=== PATIENT | male | born 1985 | race Caucasian/White ===

== ENCOUNTER 2016-11-20 15:06 | Inpatient (IN) | payer OTHER ==
[~2016-11-20] VITALS: Ht 190.5 cm; Wt 130.0 kg
[2016-11-20] MEDS ORDERED: SM A PO (15:17)
[2016-11-20] MEDS ORDERED: CHLO125TA (15:17)
[2016-11-20] MEDS ORDERED: DILT120T PO (15:17)
[2016-11-20] MEDS ORDERED: BUPR150T3 PO (15:17)
[2016-11-20] MEDS ORDERED: LIPI80TA PO (15:17)
[2016-11-20] MEDS ORDERED: CVS (15:17)
[2016-11-20] MEDS ORDERED: PROT1TAB2 PO (15:17)
[2016-11-20 16:10] LABS: MEAN CORPUSCULAR HEMOGLOBIN 30.6 pg (27.0-33.0); MEAN CORPUSCULAR HGB CONC 35.6 g/dl (32.0-36.5); RED CELL DISTRIBUTION WIDTH 12.4 % (11.5-14.5); WHITE BLOOD COUNT 7.1 10^3/uL (4.0-10.0)
[2016-11-20 16:38] LABS: METHADONE URINE NEGATIVE (NEGATIVE)
[2016-11-20 16:49] LABS: ALBUMIN 4.3 GM/DL (3.2-5.2); ALBUMIN/GLOBULIN RATIO 1.19 (1.00-1.93); ALKALINE PHOSPHATASE 93 U/L (45-117); ALT/SGPT 141 U/L (12-78); ANION GAP 6 MEQ/L (8-16); AST/SGOT 50 U/L (15-37); BILIRUBIN,DIRECT 0.2 MG/DL (0.0-0.2); BILIRUBIN,TOTAL 0.9 MG/DL (0.2-1.0); BLOOD UREA NITROGEN 18 MG/DL (7-18); CALCIUM LEVEL 9.3 MG/DL (8.5-10.1); CARBON DIOXIDE LEVEL 27 MEQ/L (21-32); CHLORIDE LEVEL 105 MEQ/L (98-107); CREATININE FOR GFR 0.91 MG/DL (0.70-1.30); GLOMERULAR FILTRATION RATE > 60.0 (>60); GLUCOSE, FASTING 86 MG/DL (70-105); SODIUM LEVEL 138 MEQ/L (136-145); TOTAL PROTEIN 7.9 GM/DL (6.4-8.2)
[2016-11-20] MEDS ORDERED: CHLO25TA PO (17:59)
[2016-11-20] MEDS ORDERED: VITA100066 PO (17:59)
[2016-11-20 21:56] VITALS: BP 140/92
[2016-11-20] MEDS ORDERED: MAALOX 30 ML SUSP *UDC PO PRN (23:00)
[2016-11-20] MEDS ORDERED: MOM 30ML SUSPENSION UDC PO PRN (23:00)
[2016-11-20] MEDS ORDERED: ACETAMINOPHEN TAB 650MG DOSE (2X325MG) PO PRN (23:00)
[2016-11-20] MEDS ORDERED: traZODone 50 MG TAB PO PRN (23:00)
[2016-11-21 06:19] VITALS: BP 136/78
[2016-11-21] MEDS: CHLORTHALIDONE 25 MG TAB PO SCH (08:29)
[2016-11-21] MEDS: LORATADINE 10 MG TAB PO SCH (08:29)
[2016-11-21] MEDS: ATORVASTATIN 20 MG TAB PO SCH (08:29)
[2016-11-21] MEDS: PANTOPRAZOLE 40MG TAB (PROTONIX) PO SCH (08:29)
[2016-11-21] MEDS ORDERED: buPROPion **XL** TABLET 150MG (WELLBUTRIN XL) PO SCH (09:00)
[2016-11-21] MEDS ORDERED: VITAMIN D 1,000 INTERNATIONAL UNITS TABLET PO SCH (09:00)
--- NOTE | 2016-11-21 09:23 | MHHPEPDOC ---
[facility] History & Physical History and Physical DATE OF ADMISSION: Nov 20, 2016 at 17:45 LEGAL STATUS AT ADMISSION: Voluntary CHIEF COMPLAINT: "depression, anxiety, ADHD, my swears I have PTSD". HISTORY OF THE PRESENT ILLNESS: Patient is a 31-year-old male, who is retired [employer] after 13.5 years. 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 He is frustrated with his lack of employment options since retiring. He is often not given an interview even though qualified and experienced. He lifes with his of 12 years and they have physical custody of 3 children belonging to another family member. Those parents are suspected of physical abuse, alcohol dependence and associating with sexual predators. Unfortunately his is ill with colon cancer and her doctor expects it to spread to the brain and gives her prognosis at 15 months. Pt works PT evenings at [employer]. He is frustrated by his lack of ability to earn a decent income and take care of the family. He is attending college on the [employer]. He reports lots of arguments with his lately over everything. Pt reports that he has had SI for several years but he actually developed a plan a couple weeks ago. When he verbalized this plan to his [facility] doctor he was sent over from that office to our ER and admitted. His plan was to use carbon monoxide poisoning. Pt denies any previous suicide attempts in the past. Pt is 90% service connected for depression and anxiety and will be eligible for benefits in April of 2017. PSYCHIATRIC REVIEW OF SYSTEMS: Affective: friendly Anxiety: mild Trauma: denies Psychosis: none Personally: cooperative PAST PSYCHIATRIC HISTORY: Prior Psychiatric Disorder: in tx previously for depression and anxiety and ADHD Outpatient Treatment: [facility] Suicidal/Self injurious: denies Psychotropic Medication History: Wellbutrin, Adderall, Stratterra (not effective. ALLERGIES: Please see below. FAMILY PSYCHIATRIC HISTORY: he is adopted. no information on bio father. All he knows of bio mom is she had MS. no information on mental illness or suicide. 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 Mom remarried and step-dad had emotional problems of anger and depression and he wasn't in the picture for long. He would yell and punch doors and eventually left. 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 Legal: denies. Martial: , Economic: VA benefits Supports: , outpatient staff Abuse/trauma: denies. 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 He knew many service members who including a female soldier who had just given and was found on with her baby next to her. He also knew an NCO and a pump servicer supervisor who committed suicide while he was deployed. SUBSTANCE ABUSE HISTORY: no drug use, some alcohol like a beer with dinner, no detox rehab or dui. PAST MEDICAL/SURGICAL HISTORY: 1. Migraines 2. h/o palpitations on Adderall PMHx: Hypertension Dyslipidemia Allergic rhinitis GERD Vitamin D deficiency RALPH. CPAP Obesity. BMI 36.9 PSHX: Nasal polypectomy [place] teeth extraction VITAL SIGNS: Temperature 98.7, pulse 68, respiratory rate16, blood pressure 136 /78, pulse [id number] % on room air. MENTAL STATUS EXAMINATION: General appearance: Patient is a 31-year old male, who is tall, fair haired, dressed in hospital scrubs, good eye contact, pleasant and cooperative. Speech: spontaneous Thought processes: goal directed, no delusion, FOI, ADRIANE or IOR. Thought content: appropriate Abstract reasoning and computation: good. Description of associations: good. Description of abnormal or psychotic thoughts: no psychotic symptoms, + suicidal thoughts with plan. Judgment: good Insight: fair. Orientation: well oreinted x 4. Recent and remote memory: intact Attention span and concentration: varies. Fund of knowledge: Full. Mood: "tired and have a migraine" Affect: congruent. DIAGNOSES: 1. MDD, recurrent, severe without psychotic symptoms.. 2. Generalized anxiety disorder 3. ADHD ASSESSMENT: pt reports poor sleep over the last several weeks and months. Has sleep apnea and struggles to sleep with the CPAP. Awakens frequently. Gets about 607 hours. Does not feel rested, low energy levels most days, poor concentration. "I'm all over the place". Struggling with Algebra. Reports increased appetite with some weight gain, psychomotor changes that include feeling "a little on edge" to constant fidgeting. Pt reports a great deal of guilt related to inability to find a good position/job. Feels he wasted his life in the and now cannot find and meaningful work. Pt is preoccupied with suirice which has become more of a plan over the past 2-3 weeks. When pt was 6 or 7 he was evaluated for ADHD and given Adderall. He reports it made him Zombie-like. "I was emotionless as a child". Meds were stopped and he could not pay attention. He asked What all the time so much so they had his hearing tested which was fine. He says Dr. Gerber at [facility] told him he had Type II ADHD. He reports difficulty with starting tasks and then completing them. He went back on Adderall in 2008 to 2013 but he had to stop the medication due to increased blood pressure and heart palpitations. Strattera was tried but was not of benefit to him. Pt was evaluated for PTSD. He denies nightmares. He talks in his sleep and he shoves his out of bed. Pt spent 1 year in [place] but that was like being at the country [place] he says. Pt identifies most difficulty with sounds resembling gun shots. This causes a hyper-startle reaction in him. He has to find the source of the noise before he calms down. Pt reports "scanning a room" when asked about hyper-vigilance but denies checking doors windows, thinking about his safety, or being overly concerned with the environment. He says he will sit in a corner of the room and observe. He denies intrusive thoughts or dissociative episodes. Pt admits to having lots of worry and some episodes of Panic. He states he was admitted here previously for a panic attack. Pt grew up in [place]. he at age 19 after meeting his at a alliance party. After [place] he was stationed at [facility]. PROBLEM LIST: 1. risk for suicide 2. depression 3. ineffective coping INITIAL TREATMENT PLAN: 1. Patient was admitted on a Voluntary status. 2. Complete history was obtained. 3. With patients permission, family will be contacted and database will be expanded. 4. Patients medication regimen will be reviewed and changed accordingly. 5. Patient will be provided with protected environment. 6. Patient will be treated with individual, group, and milieu therapies. 7. Patient will receive supportive psych-education. 8. Discharge planning will commence immediately. 9. Outpatient follow-up treatment will be strongly recommended. 10. The initial treatment plan will focus initially on: * see problem list. * * PLAN: increase Wellbutrin XL to 300 mg, monitor response, use trazodone for sleep and prn Atarax for anxiety. Enc group participation for acquisition of positive coping skills. ESTIMATED LENGTH OF STAY: 5-7 DAYS. TIME SPENT COUNSELING AND COORDINATING INITIAL CARE: 50 minutes. Laboratory Data 24H Labs Laboratory Tests 2 11/20/16 16:02: Anion Gap 6L, Glomerular Filtration Rate > 60.0, Calcium Level 9.3, Aspartate Amino Transf (AST/SGOT) 50H, Alanine Aminotransferase (ALT/SGPT) 141H, Alkaline Phosphatase 93, Total Bilirubin 0.9, Direct Bilirubin 0.2, Total Protein 7.9, Albumin 4.3, Albumin/Globulin Ratio 1.19, Thyroid Stimulating Hormone (TSH) 0.893, Salicylates Level < 1.7L, Urine Amphetamines Screen NEGATIVE, Urine Benzodiazepines Screen NEGATIVE, Urine Opiates Screen NEGATIVE, Urine Methadone Screen NEGATIVE, Acetaminophen Level < 2.0L, Urine Barbiturates Screen NEGATIVE , Urine Phencyclidine Screen NEGATIVE, Urine Cocaine Metabolite Screen NEGATIVE , Urine Cannabinoids Screen NEGATIVE, Ethyl Alcohol Level < 0.003 CBC/BMP Laboratory Tests 11/20/16 16:02 Red Blood Count 4.84, Mean Corpuscular Volume 86.0, Mean Corpuscular Hemoglobin 30.6, Mean Corpuscular Hemoglobin Concent 35.6, Red Cell Distribution Width 12.4 Medications Scheduled Atorvastatin Calcium (Lipitor) 80 Mg Tab, 40 MG PO DAILY, (Reported) Bupropion Hcl (Bupropion HCl Xl) 150 Mg Tab, 150 MG PO DAILY, (Reported) Chlorthalidone (Chlorthalidone) 25 Mg Tab, 25 MG PO DAILY, (Reported) Cholecalciferol (Vitamin D) 1,000 Unit Tab, 1,000 UNIT PO DAILY, (Reported) Diltiazem HCl (Diltiazem HCl) 120 Mg Tab, 120 MG PO DAILY, (Reported) Loratadine (Sm Allergy Relief Loratad) 10 Mg Tab, 10 MG PO DAILY, (Reported) Pantoprazole Sodium Sesquihydr (Protonix) 40 Mg Tab, 40 MG PO DAILY, (Reported) Allergies Coded Allergies: No Known Drug Allergy (Verified Allergy, Unknown, 11/01/15) Larissa Alvarez Nov 21, 2016 09:23
--- NOTE | 2016-11-21 09:38 | HPEPDOC ---
[facility] Medical History & Physical Date of Admission Nov 20, 2016 History and Physical PCP: RAL[facility] ATTENDING: Dr. Winston Friedman HPI: 31yoM admitted to [facility] for depressive disorder, being medically examined today. No acute medical complaints today. Denies any fevers, chills, weakness, fatigue, CHUN, CP, SOB, cough, palpitations, abdominal pain, N/V/D or changes in bowel or bladder habits. PMHx: Anxiety Depression ADHD Hypertension Dyslipidemia Allergic rhinitis GERD Vitamin D deficiency RALPH. CPAP Obesity. BMI 36.9 PSHX: Nasal polypectomy [place] teeth extraction SOCHX: Resides in: [facility] Marital Status: Kids: Custody of 's 2 nieces and one nephew Employment: Retired from [employer] 06/10 to previous deployments to [employer], part- time at [employer] Tobacco use: Denies ETOH: One to 2 per month Illicit Drugs: Denies IV Drug Use: Denies Tattoos done unprofessionally: Denies FAMHX: Patient is adopted and unaware of biological family history. Siblings: Alive, well Children: None ROS: As noted in HPI, otherwise 11pt ROS of systems reviewed and unremarkable. PE: GEN: 31 yo M, appears stated age. Well-nourished, well developed. No acute distress. Alert and oriented x 3. Pleasant, interactive. HEENT: Normocephalic, atraumatic. Pupils are equal, round, and reactive to light. Extraocular movements are intact. No nystagmus appreciated. Sclera are nonicteric. Conjunctiva without injection. Nose midline. Nasal turbinates without bogginess. EACs both patent BL. TMs both visualized and hamm with good cone of light, no bulging or erythema. No facial asymmetry. Moist mucous membranes. Dentition fair. Pharynx pink and moist, no cobblestoning. Neck supple , trachea midline. No lymphadenopathy or thyromegaly appreciated. CHEST: Regular rate and rhythm, +S1, +S2 LUNGS: Clear to auscultation bilaterally. No wheezes, rales, or rhonchi. Breathing appears symmetric and easy. Patient is speaking in full sentences. No accessory muscle use. ABD: Round, soft, non-tender, non-distended. +Bowel sounds throughout. No rebound or guarding. No costovertebral angle tenderness. EXT: Pulses 2+ bilaterally dorsalis pedis and radial. No lower extremity edema appreciated. SKIN: [place], dry, warm. Capillary refill <2sec. No rashes. NEURO: Alert and oriented x 3. Cranial nerves III-XII are intact. No focal deficits appreciated. EKG: pending. A&P: 31yoM admitted to [facility] for depressive disorder 1. Psych. Plan per Psychiatry. Obtain baseline EKG to assure the safety of psychiatric medications as they can prolong the QT interval. 2. RALPH. CPAP with home settings. 3. Hypertension. Continue diltiazem 120 mg daily. Continue chlorthalidone 25 mg daily. 4. Follow up with PCP on discharge. 5. Dyslipidemia. Continue Lipitor 40 mg daily. 6. Allergic rhinitis. Continue Claritin 10 mg daily. 7. GERD. Continue Protonix 40 mg daily. 8. Vitamin D deficiency. Continue vitamin D 1000 units daily. Update vitamin D level. 9. Obesity. BMI 36.9. FBS WNL, TSH WNL. 10. Elevated LFTs. No previous results are available. Recheck CMP. Add hepatitis profile. If remains elevated consider holding statin. 11. Staff member Raheel present throughout exam. Vital Signs Vital Signs Date Time Temp Pulse Resp B/P (MAP) Pulse Ox O2 Delivery O2 Flow Rate FiO2 11/21/16 08:30 68 136/78 11/21/16 06:19 98.7 16 11/20/16 21:39 96 Room Air Laboratory Data Labs 24H Laboratory Tests 2 11/20/16 16:02: Anion Gap 6L, Glomerular Filtration Rate > 60.0, Calcium Level 9.3, Aspartate Amino Transf (AST/SGOT) 50H, Alanine Aminotransferase (ALT/SGPT) 141H, Alkaline Phosphatase 93, Total Bilirubin 0.9, Direct Bilirubin 0.2, Total Protein 7.9, Albumin 4.3, Albumin/Globulin Ratio 1.19, Thyroid Stimulating Hormone (TSH) 0.893, Salicylates Level < 1.7L, Urine Amphetamines Screen NEGATIVE, Urine Benzodiazepines Screen NEGATIVE, Urine Opiates Screen NEGATIVE, Urine Methadone Screen NEGATIVE, Acetaminophen Level < 2.0L, Urine Barbiturates Screen NEGATIVE , Urine Phencyclidine Screen NEGATIVE, Urine Cocaine Metabolite Screen NEGATIVE , Urine Cannabinoids Screen NEGATIVE, Ethyl Alcohol Level < 0.003 CBC/BMP Laboratory Tests 11/20/16 16:02 Red Blood Count 4.84, Mean Corpuscular Volume 86.0, Mean Corpuscular Hemoglobin 30.6, Mean Corpuscular Hemoglobin Concent 35.6, Red Cell Distribution Width 12.4 Home Medications Scheduled Atorvastatin Calcium (Lipitor) 80 Mg Tab, 40 MG PO DAILY Bupropion Hcl (Bupropion HCl Xl) 150 Mg Tab, 150 MG PO DAILY Chlorthalidone (Chlorthalidone) 25 Mg Tab, 25 MG PO DAILY Cholecalciferol (Vitamin D) 1,000 Unit Tab, 1,000 UNIT PO DAILY Diltiazem HCl (Diltiazem HCl) 120 Mg Tab, 120 MG PO DAILY Loratadine (Sm Allergy Relief Loratad) 10 Mg Tab, 10 MG PO DAILY Pantoprazole Sodium Sesquihydr (Protonix) 40 Mg Tab, 40 MG PO DAILY Allergies Coded Allergies: No Known Drug Allergy (Verified Allergy, Unknown, 11/01/15) Myra Viera Nov 21, 2016 09:38
[2016-11-21 18:00] VITALS: BP 138/92
[2016-11-21] MEDS: hydrOXYzine 50 MG TAB PO SCH (18:58)
[2016-11-21] MEDS ORDERED: PRAZOSIN 1 MG CAP PO SCH (21:00)
[2016-11-22] MEDS: hydrOXYzine 50 MG TAB PO SCH ×3 (06:15→12:00)
[2016-11-22 06:29] VITALS: BP 144/70
[2016-11-22 07:39] LABS: BASO % 0.6 % (0.0-1.0); EOS # 0.3 10^3/uL (0.0-0.50); EOS % 3.9 % (0.0-3.0); IMMATURE GRANULOCYTE % 0.3 % (0-0); LYMPH # 2.8 10^3/uL (1.5-4.5); LYMPH % 38.6 % (24.0-44.0); MEAN CORPUSCULAR HEMOGLOBIN 30.1 pg (27.0-33.0); MEAN CORPUSCULAR HGB CONC 34.9 g/dl (32.0-36.5); MEAN CORPUSCULAR VOLUME 86.4 fl (80.0-96.0); MONO # 0.7 10^3/uL (0.0-0.8); MONO % 10.3 % (0.0-5.0); NEUTROPHILS # 3.3 10^3/uL (1.8-7.7); NEUTROPHILS % 46.3 % (36.0-66.0); PLATELET COUNT, AUTOMATED 226 10^3/uL (150-450); RED CELL DISTRIBUTION WIDTH 12.4 % (11.5-14.5); WHITE BLOOD COUNT 7.2 10^3/uL (4.0-10.0)
[2016-11-22 07:55] LABS: ALBUMIN/GLOBULIN RATIO 1.18 (1.00-1.93); ALKALINE PHOSPHATASE 97 U/L (45-117); ALT/SGPT 132 U/L (12-78); ANION GAP 7 MEQ/L (8-16); AST/SGOT 39 U/L (15-37); BILIRUBIN,TOTAL 0.9 MG/DL (0.2-1.0); BLOOD UREA NITROGEN 15 MG/DL (7-18); CALCIUM LEVEL 9.4 MG/DL (8.5-10.1); CARBON DIOXIDE LEVEL 28 MEQ/L (21-32); CHLORIDE LEVEL 104 MEQ/L (98-107); CREATININE FOR GFR 0.97 MG/DL (0.70-1.30); GLOMERULAR FILTRATION RATE > 60.0 (>60); GLUCOSE, FASTING 113 MG/DL (70-105); POTASSIUM SERUM 4.1 MEQ/L (3.5-5.1); SODIUM LEVEL 139 MEQ/L (136-145); TOTAL PROTEIN 7.4 GM/DL (6.4-8.2)
[2016-11-22] MEDS: ATORVASTATIN 20 MG TAB PO SCH (08:45)
[2016-11-22] MEDS: PANTOPRAZOLE 40MG TAB (PROTONIX) PO SCH (08:46)
[2016-11-22] MEDS: LORATADINE 10 MG TAB PO SCH (08:46)
[2016-11-22] MEDS: buPROPion **XL** TABLET 150MG (WELLBUTRIN XL) PO SCH (08:46)
[2016-11-22] MEDS: CHLORTHALIDONE 25 MG TAB PO SCH (08:47)
[2016-11-22] MEDS ORDERED: INFLUENZA QUADRIVALENT PF VACCINE 0.5ML SYRINGE (90686) IM ONE (09:00)
[2016-11-22] MEDS ORDERED: VITAMIN D 50,000 UNITS CAPSULE (ERGOCALCIFEROL 1.25MG) PO SCH (09:00)
[2016-11-22] MEDS ORDERED: hydrOXYzine 25 MG TAB PO PRN (15:15)
--- NOTE | 2016-11-22 15:16 | MHIPNPDOC ---
[facility] Progress Note Progress Note DATE OF SERVICE: 11/22/16 HISTORY: day 3 of admission for worsening depression in response to multiple serious stressors VITAL SIGNS: See below. NEW TEST RESULTS: na CURRENT MEDICATIONS: See below. MENTAL STATUS EXAMINATION: General appearance: Patient is a 31-year old male, who is tall, fair haired, dressed in hospital scrubs, good eye contact, pleasant and cooperative. Speech: spontaneous Thought processes: goal directed, no delusion, FOI, ADRIANE or IOR. Thought content: appropriate Abstract reasoning and computation: good. Description of associations: good. Description of abnormal or psychotic thoughts: no psychotic symptoms, + suicidal thoughts with plan of carbon monoxide poisoning Judgment: good Insight: fair. Orientation: well oriented x 4. Recent and remote memory: intact Attention span and concentration: varies. Fund of knowledge: Full. Mood: "so so". Affect: congruent. DIAGNOSES: 1. MDD, recurrent, severe without psychotic symptoms.. 2. Generalized anxiety disorder 3. ADHD ASSESSMENT:pt had requested standing doses of hydroxyzine to mitigate anxiety however it is causing him to feel tired. will lower dose and change to prn. Pt identifies his stressors as the main reason for his depression and wishes to get assistance from [place] related agencies to provide support for his employment needs and his family situation. Will put him in touch with our logistics planner who can assist with this. Pt slept well but has no energy due to above. Appetite intact but little motivation. Interest and concentration improved since yesterday. Is more focused on problem solving over committing suicide as he knows that is not going to solve his dilemma. MANAGEMENT PLAN: pt has requested transfer to [facility]. staffing mgr to arrange. TIME SPENT: 15 minutes. Vital Signs Vital Signs Date Time Temp Pulse Resp B/P (MAP) Pulse Ox O2 Delivery O2 Flow Rate FiO2 11/22/16 08:47 72 144/70 11/22/16 06:29 96.7 18 11/20/16 21:39 96 Room Air Laboratory Data 24H Labs Laboratory Tests 2 11/22/16 07:04: White Blood Count 7.2, Red Blood Count 5.01, Hemoglobin 15.1, Hematocrit 43.3, Mean Corpuscular Volume 86.4, Mean Corpuscular Hemoglobin 30.1, Mean Corpuscular Hemoglobin Concent 34.9, Red Cell Distribution Width 12.4, Platelet Count 226, Neutrophils (%) (Auto) 46.3, Lymphocytes (%) (Auto) 38.6, Monocytes ( %) (Auto) 10.3H, Eosinophils (%) (Auto) 3.9H, Basophils (%) (Auto) 0.6, Neutrophils # (Auto) 3.3, Lymphocytes # (Auto) 2.8, Monocytes # (Auto) 0.7, Eosinophils # (Auto) 0.3, Basophils # (Auto) 0.0, Immature Granulocyte # (Auto) 0.0, Nucleated Red Blood Cells % (auto) 0.0, Anion Gap 7L, Glomerular Filtration Rate > 60.0, Blood Urea Nitrogen 15, Creatinine 0.97, Sodium Level 139, Potassium Level 4.1, Chloride Level 104, Carbon Dioxide Level 28, Calcium Level 9.4, Aspartate Amino Transf (AST/SGOT) 39H, Alanine Aminotransferase (ALT/ SGPT) 132H, Alkaline Phosphatase 97, Total Bilirubin 0.9, Total Protein 7.4, Albumin 4.0, Albumin/Globulin Ratio 1.18 CBC/BMP Laboratory Tests 11/22/16 07:04 Red Blood Count 5.01, Mean Corpuscular Volume 86.4, Mean Corpuscular Hemoglobin 30.1, Mean Corpuscular Hemoglobin Concent 34.9, Red Cell Distribution Width 12.4 , Neutrophils (%) (Auto) 46.3, Lymphocytes (%) (Auto) 38.6, Monocytes (%) (Auto ) 10.3 H, Eosinophils (%) (Auto) 3.9 H, Basophils (%) (Auto) 0.6, Neutrophils # (Auto) 3.3, Lymphocytes # (Auto) 2.8, Monocytes # (Auto) 0.7, Eosinophils # ( Auto) 0.3, Basophils # (Auto) 0.0, Calcium Level 9.4, Aspartate Amino Transf ( AST/SGOT) 39 H, Alanine Aminotransferase (ALT/SGPT) 132 H, Alkaline Phosphatase 97, Total Bilirubin 0.9, Total Protein 7.4, Albumin 4.0 Current Medications Current Medications Acetaminophen (Tylenol Tab) 650 mg Q6HP PRN PO HEADACHE or DISCOMFORT Last administered on 11/21/16t 15:37; Start 11/20/16 at 23:00; Stop 12/20/16 at 22: 59 Al Hydrox/Mg Hydrox/Simethicone (Mylanta) 30 ml Q4HP PRN PO HEARTBURN/ INDIGESTION; Start 11/20/16 at 23:00; Stop 12/20/16 at 22:59 Atorvastatin Calcium (Lipitor) 40 mg DAILY PO Last administered on 11/22/16 08 :45; Start 11/21/16 at 09:00; Stop 12/21/16 at 08:59 Bupropion HCl (Wellbutrin Xl) 150 mg DAILY PO Last administered on 11/21/16 08 :29; Start 11/21/16 at 09:00; Stop 11/21/16 at 09:02; Status DC Bupropion HCl (Wellbutrin Xl) 300 mg DAILY PO Last administered on 11/22/16 08 :46; Start 11/22/16 at 09:00; Stop 12/22/16 at 08:59 Chlorthalidone (Hygroton) 25 mg DAILY PO Last administered on 11/22/16 08:47; Start 11/21/16 at 09:00; Stop 12/21/16 at 08:59 Diltiazem HCl (Cardizem) 120 mg DAILY PO Last administered on 11/22/16 08:47; Start 11/21/16 at 09:00; Stop 12/21/16 at 08:59 Home Med (Med Rec Complete!) ASDIRECTED XX ; Start 11/20/16 at 18:00; Stop at 18:02; Status DC Hydroxyzine HCl (Atarax) 50 mg Q6H PO Last administered on 11/22/16 06:15; Start 11/21/16 at 18:00; Stop 12/21/16 at 17:59 Loratadine (Claritin) 10 mg DAILY PO Last administered on 11/22/16 08:46; Start 11/21/16 at 09:00; Stop 12/21/16 at 08:59 Magnesium Hydroxide (Milk Of Magnesia) 30 ml DAILYPRN PRN PO CONSTIPATION; Start 11/20/16 at 23:00; Stop 12/20/16 at 22:59 Pantoprazole Sodium (Protonix) 40 mg DAILY PO Last administered on 11/22/16 08 :46; Start 11/21/16 at 09:00; Stop 12/21/16 at 08:59 Prazosin HCl (Minipress) 1 mg QHS PO ; Start 11/21/16 at 21:00; Stop 12/21/16 at 20:59; Status Cancel Trazodone HCl (Desyrel) 50 mg QHSP PRN PO INSOMNIA; Start 11/20/16 at 23:00; Stop 12/20/16 at 22:59 Vitamin D (Drisdol) 50,000 units Fr@09 PO Last administered on 11/22/16 08:45 ; Start 11/22/16 at 09:00; Stop 12/22/16 at 08:59 Vitamin D (Vitamin D) 1,000 units DAILY PO Last administered on 11/21/16 08:29 ; Start 11/21/16 at 09:00; Stop 11/22/16 at 08:19; Status DC Allergies Coded Allergies: No Known Drug Allergy (Verified Allergy, Unknown, 11/01/15) Larissa Alvarez Nov 22, 2016 15:16
[2016-11-22 18:00] VITALS: BP 132/98
--- NOTE | 2016-11-22 23:20 | ECGEPIP ---
Stationary ECG Study [facility] Test Date: 2016-11-21 Pat Name: SALAZAR HOLLEY Department: Room: [place] [id number] Gender: M Electronics Engineer: : 1985 Requested By: Myra Viera Order Number: [id number] Reading MD: Richie Reardon Measurements Intervals [place] Rate: 67 P: 56 MS: 172 QRS: 32 QRSD: 106 T: 33 QT: 400 QTc: 424 Interpretive Statements SINUS RHYTHM WITH OCCASIONAL VENTRICULAR PREMATURE COMPLEXES NO PRIOR CHASING IN THE SYSTEM Electronically Signed On 11-22-2016 23:19:40 EDT by Richie Reardon
[2016-11-23 06:37] VITALS: BP 134/68
[2016-11-23 08:23] LABS: ALBUMIN 4.2 GM/DL (3.2-5.2); ALBUMIN/GLOBULIN RATIO 1.14 (1.00-1.93); ALKALINE PHOSPHATASE 98 U/L (45-117); ALT/SGPT 132 U/L (12-78); ANION GAP 8 MEQ/L (8-16); AST/SGOT 34 U/L (15-37); BILIRUBIN,TOTAL 0.9 MG/DL (0.2-1.0); BLOOD UREA NITROGEN 20 MG/DL (7-18); CALCIUM LEVEL 9.7 MG/DL (8.5-10.1); CARBON DIOXIDE LEVEL 28 MEQ/L (21-32); CHLORIDE LEVEL 103 MEQ/L (98-107); CREATININE FOR GFR 0.98 MG/DL (0.70-1.30); GLOMERULAR FILTRATION RATE > 60.0 (>60); GLUCOSE, FASTING 99 MG/DL (70-105); POTASSIUM SERUM 4.1 MEQ/L (3.5-5.1); SODIUM LEVEL 139 MEQ/L (136-145); TOTAL PROTEIN 7.9 GM/DL (6.4-8.2)
[2016-11-23] MEDS: PANTOPRAZOLE 40MG TAB (PROTONIX) PO SCH (08:30)
[2016-11-23] MEDS: ATORVASTATIN 20 MG TAB PO SCH (08:30)
[2016-11-23] MEDS: LORATADINE 10 MG TAB PO SCH (08:30)
[2016-11-23] MEDS: buPROPion **XL** TABLET 150MG (WELLBUTRIN XL) PO SCH (08:30)
[2016-11-23] MEDS: CHLORTHALIDONE 25 MG TAB PO SCH (08:31)
--- NOTE | 2016-11-23 08:53 | REP ---
LIVER ULTRASOUND: HISTORY: Abnormal liver function tests. There are no filling defects in the gallbladder. The common bile duct measures 3.4 mm. There is fatty infiltration of the liver. The pancreas is not seen due to overlying bowel gas. The right kidney measures 5.9 cm in transverse by 5.3 cm in AP by 11.9 cm in cephalocaudal dimensions. There is no hydronephrosis or mass. IMPRESSION: Fatty infiltration of the liver. Signed by Dejuan Negrete MD 11/23/2016 09:19 A
[2016-11-23 18:00] VITALS: BP 118/92
--- NOTE | 2016-11-23 20:22 | MHIPNPDOC ---
[facility] Progress Note Progress Note DATE OF SERVICE: 11/23/16 HISTORY: HISTORY: day 4 of admission for worsening depression in response to multiple serious stressors. Today patient reports feeling a little bit better, he slept 7-8 hours last night. States his appetite is good, his energy is slowly increasing, he feels less "blank". His last suicidal thought was 4 days ago. He states that he feels that himself from his home has been helpful VITAL SIGNS: See below. NEW TEST RESULTS: N/A CURRENT MEDICATIONS: See below. MENTAL STATUS EXAMINATION: Patient is a 31-year old male, who is alert, cooperative, dressed in hospital clothes, with good eye contact and fair hygiene Speech: Is spontaneous and fluent. Language skills are fair. Thought processes including: Intact. Thought content: Focused on how to overcome this crisis. Abstract reasoning, and computation: Not assessed at this time. Description of associations: Good. Description of abnormal or psychotic thoughts: Denies suicidal ideation, denies homicidal ideation, denies thought delusions and denies auditory and visual hallucinations. Judgment: Fair. Insight: Fair. Orientation: Oriented 3. Recent and remote memory: Intact. Attention span and concentration: Fair. Language: Normal. Fund of knowledge: Not assessed at this time. Mood: Sad. Affect: Mood congruent, reactive, appropriate. DIAGNOSES: 1. MDD, recurrent, severe without psychotic symptoms.. 2. Generalized anxiety disorder 3. ADHD ASSESSMENT: Patient seems to be responding to current treatment although he still seems to be worried and sad. He didn't want to elaborate which were his stressors on quite was better for him to stay away from home but he certainly repeated that it was better for him to separate himself from home. He was not happy when he says this, in fact he looked very sad MANAGEMENT PLAN: We'll continue on current medications, we will encourage him to attend groups and continue with individual psychotherapy TIME SPENT: 30 minutes. Vital Signs Vital Signs Date Time Temp Pulse Resp B/P (MAP) Pulse Ox O2 Delivery O2 Flow Rate FiO2 11/23/16 18:00 98.6 83 16 118/92 (101) 11/20/16 21:39 96 Room Air Laboratory Data 24H Labs Laboratory Tests 2 11/23/16 07:20: Anion Gap 8, Glomerular Filtration Rate > 60.0, Blood Urea Nitrogen 20H, Creatinine 0.98, Sodium Level 139, Potassium Level 4.1, Chloride Level 103, Carbon Dioxide Level 28, Calcium Level 9.7, Aspartate Amino Transf (AST/SGOT) 34 , Alanine Aminotransferase (ALT/SGPT) 132H, Alkaline Phosphatase 98, Total Bilirubin 0.9, Total Protein 7.9, Albumin 4.2, Albumin/Globulin Ratio 1.14 CBC/BMP Laboratory Tests 11/23/16 07:20 Calcium Level 9.7, Aspartate Amino Transf (AST/SGOT) 34, Alanine Aminotransferase (ALT/SGPT) 132 H, Alkaline Phosphatase 98, Total Bilirubin 0.9 , Total Protein 7.9, Albumin 4.2 Current Medications Current Medications Acetaminophen (Tylenol Tab) 650 mg Q6HP PRN PO HEADACHE or DISCOMFORT Last administered on 11/21/16 15:37; Start 11/20/16 at 23:00; Stop 12/20/16 at 22: 59 Al Hydrox/Mg Hydrox/Simethicone (Mylanta) 30 ml Q4HP PRN PO HEARTBURN/ INDIGESTION; Start 11/20/16 at 23:00; Stop 12/20/16 at 22:59 Atorvastatin Calcium (Lipitor) 40 mg DAILY PO Last administered on 11/23/16 08 :30; Start 11/21/16 at 09:00; Stop 12/21/16 at 08:59 Bupropion HCl (Wellbutrin Xl) 150 mg DAILY PO Last administered on 11/21/16 08 :29; Start 11/21/16 at 09:00; Stop 11/21/16 at 09:02; Status DC Bupropion HCl (Wellbutrin Xl) 300 mg DAILY PO Last administered on 11/23/16 08 :30; Start 11/22/16 at 09:00; Stop 12/22/16 at 08:59 Chlorthalidone (Hygroton) 25 mg DAILY PO Last administered on 11/23/16 08:31; Start 11/21/16 at 09:00; Stop 12/21/16 at 08:59 Diltiazem HCl (Cardizem) 120 mg DAILY PO Last administered on 11/23/16 08:30; Start 11/21/16 at 09:00; Stop 12/21/16 at 08:59 Home Med (Med Rec Complete!) ASDIRECTED XX ; Start 11/20/16 at 18:00; Stop at 18:02; Status DC Hydroxyzine HCl (Atarax) 25 mg Q6HP PRN PO ANXIETY; Start 11/22/16 at 15:15; Stop 12/22/16 at 15:14 Hydroxyzine HCl (Atarax) 50 mg Q6H PO Last administered on 11/22/16 06:15; Start 11/21/16 at 18:00; Stop 11/22/16 at 15:12; Status DC Loratadine (Claritin) 10 mg DAILY PO Last administered on 11/23/16 08:30; Start 11/21/16 at 09:00; Stop 12/21/16 at 08:59 Magnesium Hydroxide (Milk Of Magnesia) 30 ml DAILYPRN PRN PO CONSTIPATION; Start 11/20/16 at 23:00; Stop 12/20/16 at 22:59 Pantoprazole Sodium (Protonix) 40 mg DAILY PO Last administered on 11/23/16 08 :30; Start 11/21/16 at 09:00; Stop 12/21/16 at 08:59 Prazosin HCl (Minipress) 1 mg QHS PO ; Start 11/21/16 at 21:00; Stop 12/21/16 at 20:59; Status Cancel Trazodone HCl (Desyrel) 50 mg QHSP PRN PO INSOMNIA; Start 11/20/16 at 23:00; Stop 12/20/16 at 22:59 Vitamin D (Drisdol) 50,000 units Fr@09 PO Last administered on 11/22/16 08:45 ; Start 11/22/16 at 09:00; Stop 12/22/16 at 08:59 Vitamin D (Vitamin D) 1,000 units DAILY PO Last administered on 11/21/16 08:29 ; Start 11/21/16 at 09:00; Stop 11/22/16 at 08:19; Status DC Allergies Coded Allergies: No Known Drug Allergy (Verified Allergy, Unknown, 11/01/15) KATHY BUCKLEY MD Nov 23, 2016 20:22
[2016-11-24 06:18] VITALS: BP 127/78
[2016-11-24] MEDS: PANTOPRAZOLE 40MG TAB (PROTONIX) PO SCH (08:22)
[2016-11-24] MEDS: CHLORTHALIDONE 25 MG TAB PO SCH (08:22)
[2016-11-24] MEDS: buPROPion **XL** TABLET 150MG (WELLBUTRIN XL) PO SCH (08:22)
[2016-11-24] MEDS: ATORVASTATIN 20 MG TAB PO SCH (08:22)
[2016-11-24] MEDS: LORATADINE 10 MG TAB PO SCH (08:22)
[2016-11-24 18:00] VITALS: BP 145/94
--- NOTE | 2016-11-24 18:43 | MHIPNPDOC ---
[facility] Progress Note Progress Note DATE OF SERVICE: 11/24/16 HISTORY: day 5 of admission for worsening depression in response to multiple serious stressors. Today 11/24/2016 patient reported feeling better, he said his visited him last night and the visit went well. He thought him and his probably were going to get into an argument last night but they didn't and that has given him some peace of mind. VITAL SIGNS: See below. NEW TEST RESULTS: None CURRENT MEDICATIONS: See below. MENTAL STATUS EXAMINATION: Patient is a 31-year old male, who is alert, pleasant, cooperative, with good eye contact, fair hygiene and grooming. Speech: Is normal in rate and tone and volume, coherent. Language skills are normal. Thought processes including: Intact. Thought content: Focus on the problems that brought him to the inpatient mental health unit and how to deal with them. Abstract reasoning, and computation: Not assessed at this time. Description of associations: Good Description of abnormal or psychotic thoughts: Denies homicidal ideation, denies suicidal ideation and denies psychosis. Judgment: Improving. Insight: Improving. Orientation: Oriented 3. Recent and remote memory: Intact. Attention span and concentration: Fair. Language: Normal. Fund of knowledge: Adequate. Mood: Sad. Affect: Congruent with mood, appropriate. DIAGNOSES: 1. MDD, recurrent, severe without psychotic symptoms.. 2. Generalized anxiety disorder 3. ADHD ASSESSMENT: Patient has multiple stressors, financial stressors, the illness of his , getting out of the army. Being away from all those stressors certainly would help him. He could benefit from long-term treatment, it something to take into consideration MANAGEMENT PLAN: We'll continue on the same medications and we will continue encouraging him to attend groups TIME SPENT: 30 minutes. Vital Signs Vital Signs Date Time Temp Pulse Resp B/P (MAP) Pulse Ox O2 Delivery O2 Flow Rate FiO2 11/24/16 18:00 97.7 90 16 145/94 (111) 11/20/16 21:39 96 Room Air Current Medications Current Medications Acetaminophen (Tylenol Tab) 650 mg Q6HP PRN PO HEADACHE or DISCOMFORT Last administered on 11/21/16t 15:37; Start 11/20/16 at 23:00; Stop 12/20/16 at 22: 59 Al Hydrox/Mg Hydrox/Simethicone (Mylanta) 30 ml Q4HP PRN PO HEARTBURN/ INDIGESTION; Start 11/20/16 at 23:00; Stop 12/20/16 at 22:59 Atorvastatin Calcium (Lipitor) 40 mg DAILY PO Last administered on 11/24/16 08 :22; Start 11/21/16 at 09:00; Stop 12/21/16 at 08:59 Bupropion HCl (Wellbutrin Xl) 150 mg DAILY PO Last administered on 11/21/16 08 :29; Start 11/21/16 at 09:00; Stop 11/21/16 at 09:02; Status DC Bupropion HCl (Wellbutrin Xl) 300 mg DAILY PO Last administered on 11/24/16 08 :22; Start 11/22/16 at 09:00; Stop 12/22/16 at 08:59 Chlorthalidone (Hygroton) 25 mg DAILY PO Last administered on 11/24/16 08:22; Start 11/21/16 at 09:00; Stop 12/21/16 at 08:59 Diltiazem HCl (Cardizem) 120 mg DAILY PO Last administered on 11/24/16 08:22; Start 11/21/16 at 09:00; Stop 12/21/16 at 08:59 Home Med (Med Rec Complete!) ASDIRECTED XX ; Start 11/20/16 at 18:00; Stop at 18:02; Status DC Hydroxyzine HCl (Atarax) 25 mg Q6HP PRN PO ANXIETY; Start 11/22/16 at 15:15; Stop 12/22/16 at 15:14 Hydroxyzine HCl (Atarax) 50 mg Q6H PO Last administered on 11/22/16 06:15; Start 11/21/16 at 18:00; Stop 11/22/16 at 15:12; Status DC Loratadine (Claritin) 10 mg DAILY PO Last administered on 11/24/16 08:22; Start 11/21/16 at 09:00; Stop 12/21/16 at 08:59 Magnesium Hydroxide (Milk Of Magnesia) 30 ml DAILYPRN PRN PO CONSTIPATION; Start 11/20/16 at 23:00; Stop 12/20/16 at 22:59 Pantoprazole Sodium (Protonix) 40 mg DAILY PO Last administered on 11/24/16 08 :22; Start 11/21/16 at 09:00; Stop 12/21/16 at 08:59 Prazosin HCl (Minipress) 1 mg QHS PO ; Start 11/21/16 at 21:00; Stop 12/21/16 at 20:59; Status Cancel Trazodone HCl (Desyrel) 50 mg QHSP PRN PO INSOMNIA; Start 11/20/16 at 23:00; Stop 12/20/16 at 22:59 Vitamin D (Drisdol) 50,000 units Fr@09 PO Last administered on 11/22/16 08:45 ; Start 11/22/16 at 09:00; Stop 12/22/16 at 08:59 Vitamin D (Vitamin D) 1,000 units DAILY PO Last administered on 11/21/16 08:29 ; Start 11/21/16 at 09:00; Stop 11/22/16 at 08:19; Status DC Allergies Coded Allergies: No Known Drug Allergy (Verified Allergy, Unknown, 11/01/15) KATHY BUCKLEY MD Nov 24, 2016 18:43
[2016-11-25 06:16] VITALS: BP 130/81
[2016-11-25] MEDS: CHLORTHALIDONE 25 MG TAB PO SCH (08:39)
[2016-11-25] MEDS: ATORVASTATIN 20 MG TAB PO SCH (08:39)
[2016-11-25] MEDS: LORATADINE 10 MG TAB PO SCH (08:39)
[2016-11-25] MEDS: PANTOPRAZOLE 40MG TAB (PROTONIX) PO SCH (08:39)
[2016-11-25] MEDS: buPROPion **XL** TABLET 150MG (WELLBUTRIN XL) PO SCH (08:39)
[2016-11-25 09:16] LABS: ALBUMIN 4.4 GM/DL (3.2-5.2); ALBUMIN/GLOBULIN RATIO 1.1 (1.00-1.93); BILIRUBIN,DIRECT 0.3 MG/DL (0.0-0.2); BILIRUBIN,TOTAL 1.2 MG/DL (0.2-1.0); TOTAL PROTEIN 8.4 GM/DL (6.4-8.2)
--- NOTE | 2016-11-25 12:29 | MHIPNPDOC ---
[facility] Progress Note Progress Note DATE OF SERVICE: 11/25/16 HISTORY: day 5 of admission for depression with SI, no plan. VITAL SIGNS: See below. NEW TEST RESULTS: SEE LABS CURRENT MEDICATIONS: See below. MENTAL STATUS EXAMINATION: Patient is a 31-year old male, who is alert, pleasant, cooperative, with good eye contact, fair hygiene and grooming. Speech: Is normal in rate and tone and volume, coherent. Language skills are normal. Thought processes including: Intact. Thought content: Focus on the problems that brought him to the inpatient mental health unit and how to deal with them. Abstract reasoning, and computation: Not assessed at this time. Description of associations: Good Description of abnormal or psychotic thoughts: Denies homicidal ideation, denies suicidal ideation and denies psychosis. Judgment: Improving. Insight: Improving. Orientation: Oriented 3. Recent and remote memory: Intact. Attention span and concentration: Fair. Language: Normal. Fund of knowledge: Adequate. Mood: Sad. Affect: Congruent with mood, appropriate. DIAGNOSES: 1. MDD, recurrent, severe without psychotic symptoms.. 2. Generalized anxiety disorder 3. ADHD ASSESSMENT:no psychiatrist's were available over the weekend to complete the 2 PC on this patient so [facility]. Pt does not feel his medications need adjusting. He expresses his stressor are serious and that is why he is depressed and makes comments pertaining to suicide. He has also expressed ambivalence about his marriage. He has a psychiatrist and a therapist through the [facility] and he is interested in additional ID services. Requested pt to make a list of his needs and we will do our best to guide him in the right direction for community based support. MANAGEMENT PLAN: Encourage pt to push his [facility] providers to provide him additional referrals for services if available. Continue medications, prepare pt for discharge this week. Set family meeting . TIME SPENT: 15 minutes. Vital Signs Vital Signs Date Time Temp Pulse Resp B/P (MAP) Pulse Ox O2 Delivery O2 Flow Rate FiO2 11/25/16 08:39 88 136/84 11/25/16 06:16 97.1 18 11/20/16 21:39 96 Room Air Laboratory Data 24H Labs Laboratory Tests 2 11/25/16 08:17: Aspartate Amino Transf (AST/SGOT) 40H, Alanine Aminotransferase (ALT/SGPT) 135H , Alkaline Phosphatase 115, Total Bilirubin 1.2H, Direct Bilirubin 0.3H, Total Protein 8.4H, Albumin 4.4, Albumin/Globulin Ratio 1.10 Current Medications Current Medications Acetaminophen (Tylenol Tab) 650 mg Q6HP PRN PO HEADACHE or DISCOMFORT Last administered on 11/21/16 15:37; Start 11/20/16 at 23:00; Stop 12/20/16 at 22: 59 Al Hydrox/Mg Hydrox/Simethicone (Mylanta) 30 ml Q4HP PRN PO HEARTBURN/ INDIGESTION; Start 11/20/16 at 23:00; Stop 12/20/16 at 22:59 Atorvastatin Calcium (Lipitor) 40 mg DAILY PO Last administered on 11/25/16 08 :39; Start 11/21/16 at 09:00; Stop 12/21/16 at 08:59 Bupropion HCl (Wellbutrin Xl) 150 mg DAILY PO Last administered on 11/21/16 08 :29; Start 11/21/16 at 09:00; Stop 11/21/16 at 09:02; Status DC Bupropion HCl (Wellbutrin Xl) 300 mg DAILY PO Last administered on 11/25/16 08 :39; Start 11/22/16 at 09:00; Stop 12/22/16 at 08:59 Chlorthalidone (Hygroton) 25 mg DAILY PO Last administered on 11/25/16 08:39; Start 11/21/16 at 09:00; Stop 12/21/16 at 08:59 Diltiazem HCl (Cardizem) 120 mg DAILY PO Last administered on 11/25/16 08:39; Start 11/21/16 at 09:00; Stop 12/21/16 at 08:59 Home Med (Med Rec Complete!) ASDIRECTED XX ; Start 11/20/16 at 18:00; Stop at 18:02; Status DC Hydroxyzine HCl (Atarax) 25 mg Q6HP PRN PO ANXIETY; Start 11/22/16 at 15:15; Stop 12/22/16 at 15:14 Hydroxyzine HCl (Atarax) 50 mg Q6H PO Last administered on 11/22/16 06:15; Start 11/21/16 at 18:00; Stop 11/22/16 at 15:12; Status DC Loratadine (Claritin) 10 mg DAILY PO Last administered on 11/25/16 08:39; Start 11/21/16 at 09:00; Stop 12/21/16 at 08:59 Magnesium Hydroxide (Milk Of Magnesia) 30 ml DAILYPRN PRN PO CONSTIPATION; Start 11/20/16 at 23:00; Stop 12/20/16 at 22:59 Pantoprazole Sodium (Protonix) 40 mg DAILY PO Last administered on 11/25/16 08 :39; Start 11/21/16 at 09:00; Stop 12/21/16 at 08:59 Prazosin HCl (Minipress) 1 mg QHS PO ; Start 11/21/16 at 21:00; Stop 12/21/16 at 20:59; Status Cancel Trazodone HCl (Desyrel) 50 mg QHSP PRN PO INSOMNIA; Start 11/20/16 at 23:00; Stop 12/20/16 at 22:59 Vitamin D (Drisdol) 50,000 units Fr@09 PO Last administered on 11/22/16 08:45 ; Start 11/22/16 at 09:00; Stop 12/22/16 at 08:59 Vitamin D (Vitamin D) 1,000 units DAILY PO Last administered on 11/21/16 08:29 ; Start 11/21/16 at 09:00; Stop 11/22/16 at 08:19; Status DC Allergies Coded Allergies: No Known Drug Allergy (Verified Allergy, Unknown, 11/01/15) Larissa Alvarez Nov 25, 2016 12:29
[2016-11-25 18:12] VITALS: BP 128/84
[2016-11-26 06:29] VITALS: BP 125/75
[2016-11-26 08:11] LABS: ALBUMIN 4.4 GM/DL (3.2-5.2); ALBUMIN/GLOBULIN RATIO 1.13 (1.00-1.93); ALKALINE PHOSPHATASE 106 U/L (45-117); ALT/SGPT 127 U/L (12-78); ANION GAP 9 MEQ/L (8-16); AST/SGOT 36 U/L (15-37); BILIRUBIN,TOTAL 1.3 MG/DL (0.2-1.0); BLOOD UREA NITROGEN 19 MG/DL (7-18); CALCIUM LEVEL 9.5 MG/DL (8.5-10.1); CARBON DIOXIDE LEVEL 29 MEQ/L (21-32); CHLORIDE LEVEL 99 MEQ/L (98-107); GLOMERULAR FILTRATION RATE > 60.0 (>60); GLUCOSE, FASTING 100 MG/DL (70-105); POTASSIUM SERUM 3.9 MEQ/L (3.5-5.1); SODIUM LEVEL 137 MEQ/L (136-145); TOTAL PROTEIN 8.3 GM/DL (6.4-8.2)
[2016-11-26] MEDS ORDERED: HYDR-3363 PO (08:13)
[2016-11-26] MEDS ORDERED: BUPR150T3 PO (08:13)
[2016-11-26] MEDS: ATORVASTATIN 20 MG TAB PO SCH (09:30)
[2016-11-26] MEDS: CHLORTHALIDONE 25 MG TAB PO SCH (09:31)
[2016-11-26] MEDS: buPROPion **XL** TABLET 150MG (WELLBUTRIN XL) PO SCH (09:31)
[2016-11-26] MEDS: PANTOPRAZOLE 40MG TAB (PROTONIX) PO SCH (09:32)
[2016-11-26] MEDS: LORATADINE 10 MG TAB PO SCH (09:32)
[2016-11-26 09:33] VITALS: BP 124/86
--- NOTE | 2016-11-26 16:01 | MHDSPDOC ---
[facility] Discharge Summary Discharge Summary DATE OF ADMISSION: Nov 20, 2016 at 17:45 DATE OF DISCHARGE: Nov 26, 2016 DISCHARGE DIAGNOSES: 1. MDD, recurrent, severe without psychotic symptoms.. 2. Generalized anxiety disorder 3. ADHD 4. r/o personality disorder-narcissistic personality REASON FOR ADMISSION: pt had suicidal thoughts due to the numerous stressors in his life and lack of progress in getting things resolved especially for employment CONSULTANTS INVOLVED: nursing, lab, pharmacy, medicine, psychiatry. TREATMENT AND PROGRESS ON THE UNIT : pt was not interested in attending groups as he felt he had all the skills he needed for stress management and anxiety reduction. Pt also did not desire medication adjustment as he feels he is anxious due to these external pressures. He was offered prn hydroxyzine at 50 mg which made him to tired and was lowered to 25 mg. HOSPITAL COURSE: We contacted his who provided some information that Winston withheld. She states he is drinking alcohol and trying to hide it and that instead of returning home after his work at [employer] he sleeps in a prachi lot of a local retail store. His purpose is to avoid interaction with her and the family. Winston has told technical writer and editor that they have had lots of difficulty in their marriage. he stated marriage counseling has made things worse. also indicates that Winston sleeps all day and has very little to do with her or the rest of the family. Our CDP reached out to his [place] therapist to inform her of these concerns. Pt [facility] only just [facility] and was encouraged to let his needs known to her so additional referrals can be made to help him with his stressors. DISCHARGE ASSESSMENT:pt will be discharged in much the same condition he was admitted in but with assurance he will not try to kill himself but will work with his outpatient providers on solutions to his problems. He was reminded that these things take time and bureaucracy is slow so patience is needed. MENTAL STATUS EXAMINATION ON DISCHARGE: Patient is a 31-year old male, who is alert, pleasant, cooperative, with good eye contact, fair hygiene and grooming. Speech: Is normal in rate and tone and volume, coherent. Spontaneous Language skills are normal. Thought processes including: Intact. Thought content: Focus on the problems that brought him to the inpatient mental health unit and how to deal with them. Abstract reasoning, and computation: good. Description of associations: Good Description of abnormal or psychotic thoughts: Denies homicidal ideation, denies suicidal ideation and denies psychosis. Judgment: limited. Insight: poor. Orientation: Oriented 3. Recent and remote memory: Intact. Attention span and concentration: Good. Language: Normal. Fund of knowledge: Adequate. Mood: euthymic Affect: flat MEDICATIONS ON DISCHARGE: -hydroxyzine prn for anxiety. PLAN/FOLLOWUP ARRANGEMENTS: [facility] for med mgt and therapy. Referral to Voc Rehab services requested via phone call to therapist. Enc therapist to look into evaluating pt for substance abuse as he denied all to us. Liver enzymes show elevation. The amount of time spent in the coordination of care for this patient was approximately 30 minutes. Vital Signs/I&Os Vital Signs Date Time Temp Pulse Resp B/P (MAP) Pulse Ox O2 Delivery O2 Flow Rate FiO2 11/26/16 09:33 80 124/86 11/26/16 06:29 98.2 16 Room Air 11/20/16 21:39 96 Laboratory Data Labs 24H Laboratory Tests 2 11/26/16 06:52: Anion Gap 9, Glomerular Filtration Rate > 60.0, Blood Urea Nitrogen 19H, Creatinine 1.00, Sodium Level 137, Potassium Level 3.9, Chloride Level 99, Carbon Dioxide Level 29, Calcium Level 9.5, Aspartate Amino Transf (AST/SGOT) 36 , Alanine Aminotransferase (ALT/SGPT) 127H, Alkaline Phosphatase 106, Total Bilirubin 1.3H, Total Protein 8.3H, Albumin 4.4, Albumin/Globulin Ratio 1.13 CBC/BMP Laboratory Tests 11/26/16 06:52 Calcium Level 9.5, Aspartate Amino Transf (AST/SGOT) 36, Alanine Aminotransferase (ALT/SGPT) 127 H, Alkaline Phosphatase 106, Total Bilirubin 1.3 H, Total Protein 8.3 H, Albumin 4.4 Medications Scheduled Atorvastatin Calcium (Lipitor) 80 Mg Tab, 40 MG PO DAILY, (Reported) Bupropion Hcl (Bupropion HCl Xl) 150 Mg Tab, 300 MG PO DAILY for DEPRESSION for 7 Days, #14 2 tabs daily for depression Chlorthalidone (Chlorthalidone) 25 Mg Tab, 25 MG PO DAILY, (Reported) Cholecalciferol (Vitamin D) 1,000 Unit Tab, 1,000 UNIT PO DAILY, (Reported) Diltiazem HCl (Diltiazem HCl) 120 Mg Tab, 120 MG PO DAILY, (Reported) Loratadine (Sm Allergy Relief Loratad) 10 Mg Tab, 10 MG PO DAILY, (Reported) Pantoprazole Sodium Sesquihydr (Protonix) 40 Mg Tab, 40 MG PO DAILY, (Reported) Scheduled PRN Hydroxyzine HCl (Hydroxyzine HCl) 25 Mg Tab, 25 MG PO Q6HP PRN for ANXIETY for 7 Days, #28 use as needed up to 4 times daily for anxiety Allergies Coded Allergies: No Known Drug Allergy (Verified Allergy, Unknown, 11/01/15) Larissa Alvarez Nov 26, 2016 16:00
== END 2016-11-26 16:02 | disposition home or self-care (01) | DRG 885 ==
LOC: M ED 15:35 → M ED INP 17:45 → M PSY 21:50
PROVIDERS: ADMIT Psychiatry & Neurology Psychiatry; ATTEND Psychiatry & Neurology Child & Adolescent Psychiatry
DX: F33.2 Major depressive disorder, recurrent severe without psychotic features (principal); F41.1 Generalized anxiety disorder; F90.9 Attention-deficit hyperactivity disorder, unspecified type; F60.81 Narcissistic personality disorder; Z79.899 Other long term (current) drug therapy; G47.33 Obstructive sleep apnea (adult) (pediatric); K21.9 Gastro-esophageal reflux disease without esophagitis; I10 Essential (primary) hypertension; E78.5 Hyperlipidemia, unspecified; E55.9 Vitamin D deficiency, unspecified; E66.9 Obesity, unspecified; Z68.36 Body mass index [BMI] 36.0-36.9, adult